=== PATIENT | male | born 1970 | race Caucasian/White ===

== ENCOUNTER 2016-06-17 13:41 | Emergency (ER) | payer OTHER ==
[2016-06-17] MEDS ORDERED: ALBUTEROL/IPRATROPIUM 2.5/0.5 MG 3 ML/EACH DOSE ONE (15:08)
== END 2016-06-17 16:12 | disposition home or self-care (01) ==
LOC: ED 13:41
DX: J06.9 Acute upper respiratory infection, unspecified (principal); J98.01 Acute bronchospasm; Z88.0 Allergy status to penicillin